=== PATIENT | female | born 1935 | race Caucasian/White ===

== ENCOUNTER → 2016-10-28 | Outpatient (CLI) | payer MEDICARE ==
--- NOTE | 2016-10-28 11:12 | REP ---
MR angiography of the aorta and runoff lower extremity arterial circulation with IV contrast: History: Numbness and swelling bilateral legs. Peripheral vascular disease. MR contrast dose: 35 ml of intravenous ProHance is given. Technique: 3-D MR angiography is acquired in the usual fashion post contrast. Source coronal images are reviewed. Maximal intensity projection images are generated and reviewed rotationally. MR angiographic findings: There is atherosclerotic irregularity of the suprarenal and infrarenal abdominal aorta. No aortic stenosis is seen. The renal arteries are singular and no renal artery stenosis is seen. Superior mesenteric artery and celiac axis are patent. No flow is observed in the inferior mesenteric artery. The common iliac arteries are widely patent bilaterally. Internal iliac arteries are patent on both sides. The external iliac arteries are patent. There is a right distal external iliac artery stenosis of 60%. Common femoral arteries are widely patent bilaterally. Profunda and superficial femoral arteries are widely patent. Popliteal arteries are of good caliber on both sides. There is three-vessel good caliber runoff in both calves with anterior and posterior tibial arteries visualized across the ankles. Impression: 1. Atherosclerotic plaquing of the abdominal aorta. 2. 60% stenosis right external iliac artery. 3. No other arterial stenosis or occlusion seen in the lower extremity runoff circulation. Signed by Catarino Flores MD 10/28/2016 12:25 P
== END ==
LOC: M RAD 08:59
PROVIDERS: ATTEND Family Medicine
DX: I73.9 Peripheral vascular disease, unspecified (principal); M79.89 Other specified soft tissue disorders
CPT/HCPCS: A9576; C8914; C8920

== ENCOUNTER 2016-11-13 10:00 | Emergency (ER) | payer MEDICARE ==
[2016-11-13 11:08] LABS: BASO % 0.7 % (0.0-1.0); EOS # 0.1 K/mm3 (0.0-0.50); EOS % 2.1 % (0.0-3.0); LARGE UNSTAINED CELL # 0.1 K/mm3 (0.0-0.4); LARGE UNSTAINED CELL % 1.7 % (0.0-4.0); LYMPH # 0.6 K/mm3 (1.5-4.5); LYMPH % 15.2 % (24.0-44.0); MEAN CORPUSCULAR HEMOGLOBIN 27.9 pg (27.0-33.0); MEAN CORPUSCULAR HGB CONC 32.2 g/dl (32.0-36.5); MEAN CORPUSCULAR VOLUME 86.8 fl (80.0-96.0); MONO # 0.3 K/mm3 (0.0-0.8); NEUTROPHILS % 73.3 % (36.0-66.0); PLATELET COUNT, AUTOMATED 135 k/mm3 (150-450); RED CELL DISTRIBUTION WIDTH 13.1 % (11.5-14.5); WHITE BLOOD COUNT 4.2 K/mm3 (4.0-10.0)
[2016-11-13 11:23] LABS: ANION GAP 5 MEQ/L (8-16); BLOOD UREA NITROGEN 20 MG/DL (7-18); CALCIUM LEVEL 8.4 MG/DL (8.8-10.2); CARBON DIOXIDE LEVEL 31 MEQ/L (21-32); CHLORIDE LEVEL 110 MEQ/L (98-107); GLOMERULAR FILTRATION RATE > 60.0 (>32); GLUCOSE, FASTING 103 MG/DL (83-110); POTASSIUM SERUM 4.1 MEQ/L (3.5-5.1); SODIUM LEVEL 146 MEQ/L (136-145)
--- NOTE | 2016-11-13 12:24 | ECGEPIP ---
Stationary ECG Study [facility] - ED Test Date: 2016-11-13 Pat Name: DIANE VELASQUEZ Department: Room: - Gender: F Legal Biller: radha : 1935 Requested By: Henry Palomares PA-C Order Number: [id number] Reading MD: Jack Thompson Measurements Intervals [place] Rate: 58 P: 78 NM: 184 QRS: 74 QRSD: 97 T: 51 QT: 427 QTc: 422 Interpretive Statements SINUS BRADYCARDIA POSSIBLE LEFT ATRIAL ENLARGEMENT Electronically Signed On 11-13-2016 12:24:40 EST by Jack Thompson
--- NOTE | 2016-11-13 13:04 | REP ---
Clinical: Headache . Findings: Age-related atrophy and microvascular ischemic changes are appreciated. The ventricles and sulci are symmetric. Mobley-white differentiation is maintained. There is no evidence for acute intracranial hemorrhage, mass/mass effect, pathology or infarction. No extra-axial fluid collection. Calvarium is intact. Paranasal sinuses and mastoid air cells are clear. Impression: Age related atrophy and microvascular ischemic changes. No acute intracranial hemorrhage, infarction, or mass/mass effect. Signed by Homar Milligan MD 11/13/2016 12:55 P
--- NOTE | 2016-11-13 13:12 | REP ---
Clinical: Syncope. Technique: PA and lateral. Comparison: 11/03/2013. Findings: Advanced COPD and chronic interstitial changes are appreciated and stable. Calcified granulomata unchanged. No acute consolidation, effusion, or pneumothorax. Mediastinum and cardiac silhouette normal. Skeletal structures intact. Impression: Chronic COPD and interstitial changes. No acute cardiopulmonary process. Signed by Homar Milligan MD 11/13/2016 01:04 P
--- NOTE | 2016-11-13 14:16 | EDDOCDS ---
Nurse's Notes [facility] Name: Raquel Soria Age: 80 yrs Sex: Female : 1935 Arrival Date: 11/13/2016 Time: 10:00 Bed 8 Private MD: Ambre Davis A Diagnosis: Headache Presentation: 11/13 10:06 Presenting complaint: Patient states: head pressure "for a while off and on" and kc3 unsteadiness x 3 days. Adult Sepsis Screening: The patient does not have new or worsening altered mentation. Patient's respiratory rate is less than 22. Systolic blood pressure is greater than 100. Patient has a qSOFA score of 0- Negative Sepsis Screen. Suicide/Homicide risk assessment- the patient denies having any suicidal and/or homicidal ideations and does not present with any other emotional, behavioral or mental health complaints. Status: Patient is not a service center appraiser or dependent. Transition of care: patient was not received from another setting of care. 10:06 Acuity: AMAN Level 3 kc3 10:06 Method Of Arrival: Walkin/Carried/Asstd kc3 Triage Assessment: 10:11 General: Appears in no apparent distress, comfortable, Behavior is appropriate for age, kc3 cooperative. Pain: Denies pain. Neurological: Level of Consciousness is awake, alert, obeys commands, Reports "head pressure" . Respiratory: Respiratory effort is even, unlabored. Derm: Skin is pink, warm & dry. Historical: - Allergies: no known allergies; - Home Meds: 1. aspirin 325 mg Oral tab 1 tab once daily 2. amlodipine 5 mg Oral tab 1 tab once daily 3. lisinopril 40 mg Oral tab 1 tab once daily 4. atenolol 25 mg Oral tab 1 tab once daily 5. dorzolamide 2 % ophthalmic drop 1 drop 3 times per day - PMHx: Colon cancer; Hypertension; - PSHx: Hysterectomy; Colon re-section; - Social history: Smoking status: Patient states former smoker of tobacco. No barriers to communication noted, The patient speaks fluent Kyrgyz, Speaks appropriately for age. - Family history: Not pertinent. - : The pt / caregiver states he / she is not on anticoagulants. Home medication list is obtained from the patient. - Exposure Risk Screening:: None identified. Screenin:58 Screening information is obtained from the patient. Fall risk: No risks identified. aa3 Assistance ADL's: requires no assistance with activities of daily living. Abuse/DV Screen: The patient / caregiver reports he/she is: not in a situation that causes fear, pain or injury. Nutritional screening: No deficits noted. Advance Directives: Currently, there is no health care proxy. There is no active DNR order. home support is adequate. Assessment: 10:45 General: Appears in no apparent distress, comfortable, Behavior is appropriate for age, aa3 cooperative. Pain: Denies pain. Neurological: Level of Consciousness is awake, alert, Oriented to person, place, time. Respiratory: Airway is patent Respiratory effort is even, unlabored, Respiratory pattern is regular, symmetrical. GI: Abdomen is non- distended. Derm: Skin is intact, is healthy with good turgor, Skin is pink, warm & dry. 11:56 General: Patient resting comfortably on stretcher. No distress noted, no apparent aa3 change in condition. Respirations are even and unlabored, safety precautions in place, will continue to monitor.. 12:44 General: MD speaking with pt at this time. . Neurological: Level of Consciousness is ttb awake, alert. Cardiovascular: Rhythm is sinus rhythm. Respiratory: Airway is patent Respiratory effort is even, unlabored, Respiratory pattern is regular. 14:09 General: Appears in no apparent distress, comfortable, Behavior is appropriate for age, aa3 cooperative. Pain: Denies pain. Neurological: Level of Consciousness is awake, alert, Oriented to person, place, time. Respiratory: Airway is patent Respiratory effort is even, unlabored, Respiratory pattern is regular, symmetrical. Derm: Skin is intact, is healthy with good turgor. Vital Signs: 10:03 BP 148 / 74; Pulse 60; Resp 20; Temp 97.6(O); Pulse Ox 93% ; Weight 44.45 kg; Height 5 cmb ft. 1 in. (154.94 cm); Pain 0/10; 10:41 BP 152 / 72 (auto/); aa3 10:41 Pulse 60 MON; Pulse Ox 94% ; aa3 10:58 BP 152 / 77 LA Supine (auto/reg); Pulse 62; aa3 10:58 BP 161 / 77 LA Sitting (auto/reg); Pulse 63; aa3 10:58 BP 150 / 70 LA Standing (auto/reg); Pulse 62; aa3 11:22 Pulse 60 MON; Pulse Ox 95% ; aa3 11:23 BP 143 / 63 (auto/); aa3 11:52 Pulse 64 MON; Pulse Ox 93% ; aa3 11:53 BP 156 / 90 (auto/); aa3 13:17 Pulse Ox 94% on R/A; aa3 13:22 Pulse 58 MON; Pulse Ox 97% ; aa3 13:22 Temp 96.9(O); Pain 0/10; aa3 13:23 BP 155 / 72 (auto/); aa3 13:52 Pulse 62 MON; Pulse Ox 96% ; aa3 13:53 BP 172 / 78 (auto/); aa3 14:03 Pulse 64 MON; Pulse Ox 95% ; aa3 14:04 BP 164 / 79 (auto/); aa3 10:03 Body Mass Index 18.52 (44.45 kg, 154.94 cm) cmb 13:17 on ambulation aa3 Vitals: 10:03 Log In Time: November 13, 2016 at 10:00. cmb ED Course: 10:02 Patient visited by Linda Mackenzie. cmb 10:02 Patient moved to Waiting cmb 10:03 Amber Davis is Private Physician. cmb 10:05 Patient moved to Pre RCE cmb 10:08 Triage Initiated kc3 10:12 Patient moved to Triage 1 kc3 10:30 ekg monitor on. Pulse ox on. NIBP on. aa3 10:30 Inserted peripheral IV: 20gauge IV in right antecubital area Patient tolerated the aa3 procedure well. Labs drawn. (by ED staff). Sent per order to lab. 10:34 Malka Manrique,RN is Primary Nurse. mlb1 10:34 Patient moved to 8 mlb1 10:46 Patient visited by Lisa Flores,ROSALIE. aa3 10:51 Patient visited by Richi Rudd PCA. jrd 10:51 EKG done. (by ED staff). Reviewed by Presley Dallas MD. jrd 10:58 The patient / caregiver is instructed regarding the plan of care and ED course. aa3 11:00 Patient visited by Lisa Flores RN. aa3 11:26 Hector Khan DO is PHCP. gk1 11:26 Presley Dallas MD is Attending Physician. gk1 11:26 Patient visited by Hector Khan DO. gk1 11:57 Patient visited by Lisa Flores RN. aa3 12:12 Patient visited by Lisa Flores RN. aa3 12:25 EKG-ADULT Returned. EDMS 12:47 Patient visited by Jyotsna Mesa RN. ttb 12:47 Patient visited by Presley Dallas MD. br1 13:07 CT Head Without Contrast Returned. EDMS 13:15 [facility] Payment Agreement was scanned into [employer] and attached to record. mm15 13:17 Patient visited by Lisa Flores RN. aa3 13:22 Discontinued IV intact, bleeding controlled, No redness/swelling at site. No procedures aa3 done that require assistance. 13:41 Patient visited by Hector Khan DO. gk1 13:47 Amber Davis is Referral Physician. gk1 13:47 Chest, 2 View (pa\\E\\lat) Returned. EDMS 13:48 Leonard Estrada MD is Referral Physician. gk1 Order Results: Lab Order: Basic Metabolic Profile; [facility] 11/13/16 10:53 Test: GLUCOSE, FASTING; Value: 103; Range: 83-110; Units: MG/DL; Status: F Test: BLOOD UREA NITROGEN; Value: 20; Range: 7-18; Abnormal: Above high normal; Units: MG/DL; Status: F Test: CREATININE FOR GFR; Value: 0.80; Range: 0.55-1.02; Units: MG/DL; Status: F Test: GLOMERULAR FILTRATION RATE; Value: > 60.0; Range: >32; Status: F Test: SODIUM LEVEL; Value: 146; Range: 136-145; Abnormal: Above high normal; Units: MEQ/L; Status: F Test: POTASSIUM SERUM; Value: 4.1; Range: 3.5-5.1; Units: MEQ/L; Status: F Test: CHLORIDE LEVEL; Value: 110; Range: 98-107; Abnormal: Above high normal; Units: MEQ/L; Status: F Test: CARBON DIOXIDE LEVEL; Value: 31; Range: 21-32; Units: MEQ/L; Status: F Test: ANION GAP; Value: 5; Range: 8-16; Abnormal: Below low normal; Units: MEQ/L; Status: F Test: CALCIUM LEVEL; Value: 8.4; Range: 8.8-10.2; Abnormal: Below low normal; Units: MG/DL; Status: F Test Note: ; Units are mL/min/1.73 m2 Chronic Kidney Disease Staging per NKF: Stage I & II GFR >=60 Normal to Mildly Decreased Stage III GFR 30-59 Moderately Decreased Stage IV GFR 15-29 Severely Decreased Stage V GFR <15 Very Little GFR Left ESRD GFR <15 on DIGITAL MEDIA PRODUCER Lab Order: CBC with Diff; SPEC'M 11/13/16 10:53 Test: WHITE BLOOD COUNT; Value: 4.2; Range: 4.0-10.0; Units: K/mm3; Status: F Test: RED BLOOD COUNT; Value: 4.97; Range: 4.00-5.40; Units: M/mm3; Status: F Test: HEMOGLOBIN; Value: 13.9; Range: 12.0-16.0; Units: g/dl; Status: F Test: HEMATOCRIT; Value: 43.1; Range: 36.0-47.0; Units: %; Status: F Test: MEAN CORPUSCULAR VOLUME; Value: 86.8; Range: 80.0-96.0; Units: fl; Status: F Test: MEAN CORPUSCULAR HEMOGLOBIN; Value: 27.9; Range: 27.0-33.0; Units: pg; Status: F Test: MEAN CORPUSCULAR HGB CONC; Value: 32.2; Range: 32.0-36.5; Units: g/dl; Status: F Test: RED CELL DISTRIBUTION WIDTH; Value: 13.1; Range: 11.5-14.5; Units: %; Status: F Test: PLATELET COUNT, AUTOMATED; Value: 135; Range: 150-450; Abnormal: Below low normal; Units: k/mm3; Status: F Test: NEUTROPHILS %; Value: 73.3; Range: 36.0-66.0; Abnormal: Above high normal; Units: %; Status: F Test: LYMPH %; Value: 15.2; Range: 24.0-44.0; Abnormal: Below low normal; Units: %; Status: F Test: MONO %; Value: 7.0; Range: 0.0-5.0; Abnormal: Above high normal; Units: %; Status: F Test: EOS %; Value: 2.1; Range: 0.0-3.0; Units: %; Status: F Test: BASO %; Value: 0.7; Range: 0.0-1.0; Units: %; Status: F Test: LARGE UNSTAINED CELL %; Value: 1.7; Range: 0.0-4.0; Units: %; Status: F Test: NEUTROPHILS #; Value: 3.0; Range: 1.8-7.7; Units: K/mm3; Status: F Test: LYMPH #; Value: 0.6; Range: 1.5-4.5; Abnormal: Below low normal; Units: K/mm3; Status: F Test: MONO #; Value: 0.3; Range: 0.0-0.8; Units: K/mm3; Status: F Test: EOS #; Value: 0.1; Range: 0.0-0.50; Units: K/mm3; Status: F Test: BASO #; Value: 0.0; Range: 0.0-0.2; Units: K/mm3; Status: F Test: LARGE UNSTAINED CELL #; Value: 0.1; Range: 0.0-0.4; Units: K/mm3; Status: F Lab Order: Cardiac Injury Profile; SPEC' 11/13/16 10:53 Test: CPK CREATINE PHOSPHOKINASE; Value: 43; Range: 26-192; Units: U/L; Status: F Test: CK-MB VALUE MASS; Value: 1.2; Range: 0.0-3.6; Units: NG/ML; Status: F Test: MB/CK RELATIVE INDEX; Value: 2.79; Range: < OR =4; Status: F Test Note: ; DIAGNOSIS CRITERIA MMB ng/ml Relative Index (RI) NON-AMI < or = 5 N/A MOB[place] ZONE > 5 < or = 4 AMI > 5 > 4 Lab Order: Troponin; SPEC'M 11/13/16 10:53 Test: TROPONIN I; Value: < 0.02; Range: < 0.10; Units: NG/ML; Status: F Test Note: ; Troponin I Reference Interval for [employer] [place] LOCI: 99th Percentile= 0.00-0.045 ng/ml Risk Stratification: <= 0.10 ng/ml Decreased Risk for Adverse Clinical Events. 0.10-1.50 ng/ml Increased Risk for Adverse Clinical Events. Evaluation of additional criterion and/or repeat testing in 2-6 hours is suggested to rule out myocardial damage. >= 1.50 ng/ml Indicative of Myocardial Injury. Radiology Order: CT Head Without Contrast Test: CT Head Without Contrast REASON FOR EXAMINATION: head pressure/headache; Clinical: Headache .; ; Findings:; Age-related atrophy and microvascular ischemic changes are appreciated. The; ventricles and sulci are symmetric. Mobley-white differentiation is maintained.; There is no evidence for acute intracranial hemorrhage, mass/mass effect,; pathology or infarction. No extra-axial fluid collection. Calvarium is intact.; Paranasal sinuses and mastoid air cells are clear.; ; Impression:; Age related atrophy and microvascular ischemic changes.; No acute intracranial hemorrhage, infarction, or mass/mass effect.; ; ; Signed by; Homar Milligan MD 11/13/2016 12:55 P; Radiology Order: Chest, 2 View (pa\\E\\lat) Test: Chest, 2 View (pa\\E\\lat) REASON FOR EXAMINATION: near syncope; Clinical: Syncope.; ; Technique: PA and lateral.; ; Comparison: 11/03/2013.; ; Findings:; Advanced COPD and chronic interstitial changes are appreciated and stable.; Calcified granulomata unchanged. No acute consolidation, effusion, or; pneumothorax. Mediastinum and cardiac silhouette normal. Skeletal structures; intact.; ; Impression:; Chronic COPD and interstitial changes. No acute cardiopulmonary process.; ; ; Signed by; Homar Milligan MD 11/13/2016 01:04 P; Outcome: 13:22 Discharge Assessment: Patient awake, alert and oriented x 3. No cognitive and/or aa3 functional deficits noted. Patient verbalized understanding of disposition instructions. patient administered narcotics - no. The following High Risk Discharge criteria are identified: None. Discharged to home ambulatory, with family. Condition: good. Discharge instructions given to patient, Instructed on discharge instructions, follow up and referral plans. medication usage, Demonstrated understanding of instructions, medications, Pt was receptive of discharge instructions/ teaching. Prescriptions given X 1. No special radiology studies were completed. Property :Personal belongings accompany Pt. 13:48 Discharge ordered by Provider. gk1 14:15 Patient left the ED. aa3 Signatures: Dispatcher [employer] EDRao Ibarra RN RN mlb1 Presley Dallas MD MD br1 Linda Mackenzie Teresa, RN RN ttb Nevaeh Saeed mm15 Lisa FloresRN RN aa3 Richi Rudd PCA PCA jrd Crane, Kelsi,ROSALIE RN kc3 Hector Khan, DO gk1 MTDD
--- NOTE | 2016-11-13 14:16 | EDDOCDS ---
Physician Documentation [facility] Name: Raquel Soria Age: 80 yrs Sex: Female : 1935 Arrival Date: 11/13/2016 Time: 10:00 Bed 8 Private MD: Amber Davis A Disposition: 11/13/16 13:48 Discharged to Home/Self Care. Impression: Headache. - Condition is Stable. - Discharge Instructions: General Headache Without Cause, General Headache Without Cause, [id number]. - Prescriptions for nortriptyline 10 mg Oral capsule - take 1 capsule by ORAL route at bedtime; 30 capsule. - Medication Reconciliation, Local Pharmacy Hours form. - Follow up: Amber Davis; When: 4 - 5 days; Reason: Recheck today's complaints, Continuance of care. Follow up: Leonard Estrada MD; When: Call to arrange an appointment; Reason: Recheck today's complaints, Continuance of care, To establish care. - Problem is new. - Symptoms have improved. - Notes: Diagnosis: Headache. Start nortriptylene 10 m capsule by mouthat bedtime daily. Please follow up with your Primary Care Physician Dr. Davis in 4-5 days. Discuss your entire medication list for any renewals or changes to your medications. Please follow up with Neurologist and call Dr. Estrada's office for an appointment for further evaluation of your head complaint. If any worsening signs or symptoms such as confusion, weakness, or unstable balance, please return to the ED for further evaluation. Historical: - Allergies: no known allergies; - Home Meds: 1. aspirin 325 mg Oral tab 1 tab once daily 2. amlodipine 5 mg Oral tab 1 tab once daily 3. lisinopril 40 mg Oral tab 1 tab once daily 4. atenolol 25 mg Oral tab 1 tab once daily 5. dorzolamide 2 % ophthalmic drop 1 drop 3 times per day - PMHx: Colon cancer; Hypertension; - PSHx: Hysterectomy; Colon re-section; - Social history: Smoking status: Patient states former smoker of tobacco. No barriers to communication noted, The patient speaks fluent Irish, Speaks appropriately for age. - Family history: Not pertinent. - : The pt / caregiver states he / she is not on anticoagulants. Home medication list is obtained from the patient. - Exposure Risk Screening:: None identified. Vital Signs: 11/13 10:03 BP 148 / 74; Pulse 60; Resp 20; Temp 97.6(O); Pulse Ox 93% ; Weight 44.45 kg / 98 lbs; cmb Height 5 ft. 1 in. (154.94 cm); Pain 0/10; 10:41 BP 152 / 72 (auto/); aa3 10:41 Pulse 60 MON; Pulse Ox 94% ; aa3 10:58 BP 152 / 77 LA Supine (auto/reg); Pulse 62; aa3 10:58 BP 161 / 77 LA Sitting (auto/reg); Pulse 63; aa3 10:58 BP 150 / 70 LA Standing (auto/reg); Pulse 62; aa3 11:22 Pulse 60 MON; Pulse Ox 95% ; aa3 11:23 BP 143 / 63 (auto/); aa3 11:52 Pulse 64 MON; Pulse Ox 93% ; aa3 11:53 BP 156 / 90 (auto/); aa3 13:17 Pulse Ox 94% on R/A; aa3 13:22 Pulse 58 MON; Pulse Ox 97% ; aa3 13:22 Temp 96.9(O); Pain 0/10; aa3 13:23 BP 155 / 72 (auto/); aa3 13:52 Pulse 62 MON; Pulse Ox 96% ; aa3 13:53 BP 172 / 78 (auto/); aa3 14:03 Pulse 64 MON; Pulse Ox 95% ; aa3 14:04 BP 164 / 79 (auto/); aa3 10:03 Body Mass Index 18.52 (44.45 kg, 154.94 cm) cmb 13:17 on ambulation aa3 MDM: 10:39 Budget Manager/Pulse Ox/q 30 min VS ordered. cc10 10:40 ECG WITH READING ER PHYS+CARDIAG ordered. EDMS 10:41 IV Saline Lock ordered. br1 10:41 Rhythm Strip to chart ordered. br1 10:41 Undress patient appropriately for examination ordered. br1 10:42 Orthostatic VS ordered. br1 10:43 Basic Metabolic Profile Ordered. EDMS 10:43 CBC with Diff Ordered. EDMS 10:43 Cardiac Injury Profile Ordered. EDMS 10:43 Troponin Ordered. EDMS 12:30 CT Head Without Contrast Ordered. EDMS 12:31 Basic Metabolic Profile Reviewed. gk1 12:31 CBC with Diff Reviewed. gk1 12:31 Cardiac Injury Profile Reviewed. gk1 12:31 Troponin Reviewed. gk1 12:48 Ambulate Patient wt Pulse Oximetry ordered. br1 12:50 Chest, 2 View (pa\E\lat) Ordered. EDMS 13:15 [facility] Payment Agreement was scanned into [employer] and attached to record. mm15 13:31 ED course: Seen with resident. Patient complains of several weeks of lightheadedness br1 with bitemporal pressure which she had attributed to her high blood pressure. No chest pain, no shortness of breath. No fever. No neck pain or stiffness, no rash. No trauma. No visual changes. No numbness or weakness. No trouble walking. On exam, lungs, CTA bilaterally. Neurologically intact throughout. Ambulating steadily in ED without ataxia. BP is controlled at 156/90 with no signs or symptoms of end organ damage. Bloodwork along with CT scan of the head as well as chest Xray are unrevealing. No hypoxia with ambulation. Discussed with patient unclear cause of headache. Plan DC home, follow up with her PCP Dr. Davis this week, also provided with Neurology referral to Dr. Estrada for headache. Patient agrees, will call for her appointments.. 13:39 CT Head Without Contrast Reviewed. gk1 13:50 Financial registration complete. lg Signatures: Dispatcher [employer] EDNY Brendan Bingham, Reg Reg lg Presley Dallas MD MD br1 Nevaeh Saeed mm15 Lisa Flores RN RN aa3 Henry Palomares, PA-C PA-C cc10 Taryn Ndiaye RN RN kc3 Hector Khan, DO DO gk1 The chart was reviewed and I authenticate all verbal orders and agree with the evaluation and treatment provided.Attachments: 13:15 [facility] Payment Agreement mm15 [facility]
--- NOTE | 2016-11-15 15:16 | EDDOCDS ---
Physician Documentation [facility] Name: Raquel Soria Age: 80 yrs Sex: Female : 1935 Arrival Date: 11/13/2016 Time: 10:00 Bed 8 Private MD: Amber Davis A Disposition: 11/13/16 13:48 Discharged to Home/Self Care. Impression: Headache. - Condition is Stable. - Discharge Instructions: General Headache Without Cause, General Headache Without Cause, [id number]. - Prescriptions for nortriptyline 10 mg Oral capsule - take 1 capsule by ORAL route at bedtime; 30 capsule. - Medication Reconciliation, Local Pharmacy Hours form. - Follow up: Amber Davis; When: 4 - 5 days; Reason: Recheck today's complaints, Continuance of care. Follow up: Leonard Estrada MD; When: Call to arrange an appointment; Reason: Recheck today's complaints, Continuance of care, To establish care. - Problem is new. - Symptoms have improved. - Notes: Diagnosis: Headache. Start nortriptylene 10 m capsule by mouthat bedtime daily. Please follow up with your Primary Care Physician Dr. Davis in 4-5 days. Discuss your entire medication list for any renewals or changes to your medications. Please follow up with Neurologist and call Dr. Estrada's office for an appointment for further evaluation of your head complaint. If any worsening signs or symptoms such as confusion, weakness, or unstable balance, please return to the ED for further evaluation. Historical: - Allergies: no known allergies; - Home Meds: 1. aspirin 325 mg Oral tab 1 tab once daily 2. amlodipine 5 mg Oral tab 1 tab once daily 3. lisinopril 40 mg Oral tab 1 tab once daily 4. atenolol 25 mg Oral tab 1 tab once daily 5. dorzolamide 2 % ophthalmic drop 1 drop 3 times per day - PMHx: Colon cancer; Hypertension; - PSHx: Hysterectomy; Colon re-section; - Social history: Smoking status: Patient states former smoker of tobacco. No barriers to communication noted, The patient speaks fluent Turkish, Speaks appropriately for age. - Family history: Not pertinent. - : The pt / caregiver states he / she is not on anticoagulants. Home medication list is obtained from the patient. - Exposure Risk Screening:: None identified. Vital Signs: 11/13 10:03 BP 148 / 74; Pulse 60; Resp 20; Temp 97.6(O); Pulse Ox 93% ; Weight 44.45 kg / 98 lbs; cmb Height 5 ft. 1 in. (154.94 cm); Pain 0/10; 10:41 BP 152 / 72 (auto/); aa3 10:41 Pulse 60 MON; Pulse Ox 94% ; aa3 10:58 BP 152 / 77 LA Supine (auto/reg); Pulse 62; aa3 10:58 BP 161 / 77 LA Sitting (auto/reg); Pulse 63; aa3 10:58 BP 150 / 70 LA Standing (auto/reg); Pulse 62; aa3 11:22 Pulse 60 MON; Pulse Ox 95% ; aa3 11:23 BP 143 / 63 (auto/); aa3 11:52 Pulse 64 MON; Pulse Ox 93% ; aa3 11:53 BP 156 / 90 (auto/); aa3 13:17 Pulse Ox 94% on R/A; aa3 13:22 Pulse 58 MON; Pulse Ox 97% ; aa3 13:22 Temp 96.9(O); Pain 0/10; aa3 13:23 BP 155 / 72 (auto/); aa3 13:52 Pulse 62 MON; Pulse Ox 96% ; aa3 13:53 BP 172 / 78 (auto/); aa3 14:03 Pulse 64 MON; Pulse Ox 95% ; aa3 14:04 BP 164 / 79 (auto/); aa3 10:03 Body Mass Index 18.52 (44.45 kg, 154.94 cm) cmb 13:17 on ambulation aa3 MDM: 10:39 [address] Commissioner/Pulse Ox/q 30 min VS ordered. cc10 10:40 ECG WITH READING ER PHYS+CARDIAG ordered. EDMS 10:41 IV Saline Lock ordered. br1 10:41 Rhythm Strip to chart ordered. br1 10:41 Undress patient appropriately for examination ordered. br1 10:42 Orthostatic VS ordered. br1 10:43 Basic Metabolic Profile Ordered. EDMS 10:43 CBC with Diff Ordered. EDMS 10:43 Cardiac Injury Profile Ordered. EDMS 10:43 Troponin Ordered. EDMS 12:30 CT Head Without Contrast Ordered. EDMS 12:31 Basic Metabolic Profile Reviewed. gk1 12:31 CBC with Diff Reviewed. gk1 12:31 Cardiac Injury Profile Reviewed. gk1 12:31 Troponin Reviewed. gk1 12:48 Ambulate Patient wt Pulse Oximetry ordered. br1 12:50 Chest, 2 View (pa\E\lat) Ordered. EDMS 13:15 [facility] Payment Agreement was scanned into [employer] and attached to record. mm15 13:31 ED course: Seen with resident. Patient complains of several weeks of lightheadedness br1 with bitemporal pressure which she had attributed to her high blood pressure. No chest pain, no shortness of breath. No fever. No neck pain or stiffness, no rash. No trauma. No visual changes. No numbness or weakness. No trouble walking. On exam, lungs, CTA bilaterally. Neurologically intact throughout. Ambulating steadily in ED without ataxia. BP is controlled at 156/90 with no signs or symptoms of end organ damage. Bloodwork along with CT scan of the head as well as chest Xray are unrevealing. No hypoxia with ambulation. Discussed with patient unclear cause of headache. Plan DC home, follow up with her PCP Dr. Davis this week, also provided with Neurology referral to Dr. Estrada for headache. Patient agrees, will call for her appointments.. 13:39 CT Head Without Contrast Reviewed. gk1 13:50 Financial registration complete. 15:45 T-Sheet-- Draft Copy was scanned into [employer] and attached to record. klr Signatures: Dispatcher [employer] [facility] Brendan Bingham, Reg Reg Presley Dallas MD MD br1 Nevaeh Saeed mm15 Lisa Flores,RN RN aa3 Henry Palomares, PA-C PA-C cc10 Taryn Ndiaye RN RN kc3 Corinne Rodriguez klr Hector Khan, DO DO gk1 The chart was reviewed and I authenticate all verbal orders and agree with the evaluation and treatment provided.Attachments: 13:15 [facility] Payment Agreement mm15 15:45 T-Sheet-- Draft Copy klr Chart Complete MTDD
--- NOTE | 2016-11-15 15:16 | EDDOCDS ---
Physician Documentation [facility] Name: Raquel Soria Age: 80 yrs Sex: Female : 1935 Arrival Date: 11/13/2016 Time: 10:00 Bed 8 Private MD: Amber Davis A Disposition: 11/13/16 13:48 Discharged to Home/Self Care. Impression: Headache. - Condition is Stable. - Discharge Instructions: General Headache Without Cause, General Headache Without Cause, [id number]. - Prescriptions for nortriptyline 10 mg Oral capsule - take 1 capsule by ORAL route at bedtime; 30 capsule. - Medication Reconciliation, Local Pharmacy Hours form. - Follow up: Amber Davis; When: 4 - 5 days; Reason: Recheck today's complaints, Continuance of care. Follow up: Leonard Estrada MD; When: Call to arrange an appointment; Reason: Recheck today's complaints, Continuance of care, To establish care. - Problem is new. - Symptoms have improved. - Notes: Diagnosis: Headache. Start nortriptylene 10 m capsule by mouthat bedtime daily. Please follow up with your Primary Care Physician Dr. Davis in 4-5 days. Discuss your entire medication list for any renewals or changes to your medications. Please follow up with Neurologist and call Dr. Estrada's office for an appointment for further evaluation of your head complaint. If any worsening signs or symptoms such as confusion, weakness, or unstable balance, please return to the ED for further evaluation. Historical: - Allergies: no known allergies; - Home Meds: 1. aspirin 325 mg Oral tab 1 tab once daily 2. amlodipine 5 mg Oral tab 1 tab once daily 3. lisinopril 40 mg Oral tab 1 tab once daily 4. atenolol 25 mg Oral tab 1 tab once daily 5. dorzolamide 2 % ophthalmic drop 1 drop 3 times per day - PMHx: Colon cancer; Hypertension; - PSHx: Hysterectomy; Colon re-section; - Social history: Smoking status: Patient states former smoker of tobacco. No barriers to communication noted, The patient speaks fluent Nicaraguan, Speaks appropriately for age. - Family history: Not pertinent. - : The pt / caregiver states he / she is not on anticoagulants. Home medication list is obtained from the patient. - Exposure Risk Screening:: None identified. Vital Signs: 11/13 10:03 BP 148 / 74; Pulse 60; Resp 20; Temp 97.6(O); Pulse Ox 93% ; Weight 44.45 kg / 98 lbs; cmb Height 5 ft. 1 in. (154.94 cm); Pain 0/10; 10:41 BP 152 / 72 (auto/); aa3 10:41 Pulse 60 MON; Pulse Ox 94% ; aa3 10:58 BP 152 / 77 LA Supine (auto/reg); Pulse 62; aa3 10:58 BP 161 / 77 LA Sitting (auto/reg); Pulse 63; aa3 10:58 BP 150 / 70 LA Standing (auto/reg); Pulse 62; aa3 11:22 Pulse 60 MON; Pulse Ox 95% ; aa3 11:23 BP 143 / 63 (auto/); aa3 11:52 Pulse 64 MON; Pulse Ox 93% ; aa3 11:53 BP 156 / 90 (auto/); aa3 13:17 Pulse Ox 94% on R/A; aa3 13:22 Pulse 58 MON; Pulse Ox 97% ; aa3 13:22 Temp 96.9(O); Pain 0/10; aa3 13:23 BP 155 / 72 (auto/); aa3 13:52 Pulse 62 MON; Pulse Ox 96% ; aa3 13:53 BP 172 / 78 (auto/); aa3 14:03 Pulse 64 MON; Pulse Ox 95% ; aa3 14:04 BP 164 / 79 (auto/); aa3 10:03 Body Mass Index 18.52 (44.45 kg, 154.94 cm) cmb 13:17 on ambulation aa3 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 cc10 10:40 ECG WITH READING ER PHYS+CARDIAG ordered. EDMS 10:41 IV Saline Lock ordered. br1 10:41 Rhythm Strip to chart ordered. br1 10:41 Undress patient appropriately for examination ordered. br1 10:42 Orthostatic VS ordered. br1 10:43 Basic Metabolic Profile Ordered. EDMS 10:43 CBC with Diff Ordered. EDMS 10:43 Cardiac Injury Profile Ordered. EDMS 10:43 Troponin Ordered. EDMS 12:30 CT Head Without Contrast Ordered. EDMS 12:31 Basic Metabolic Profile Reviewed. gk1 12:31 CBC with Diff Reviewed. gk1 12:31 Cardiac Injury Profile Reviewed. gk1 12:31 Troponin Reviewed. gk1 12:48 Ambulate Patient wt Pulse Oximetry ordered. br1 12:50 Chest, 2 View (pa\E\lat) Ordered. EDMS 13:15 [facility] Payment Agreement was scanned into [employer] and attached to record. mm15 13:31 ED course: Seen with resident. Patient complains of several weeks of lightheadedness br1 with bitemporal pressure which she had attributed to her high blood pressure. No chest pain, no shortness of breath. No fever. No neck pain or stiffness, no rash. No trauma. No visual changes. No numbness or weakness. No trouble walking. On exam, lungs, CTA bilaterally. Neurologically intact throughout. Ambulating steadily in ED without ataxia. BP is controlled at 156/90 with no signs or symptoms of end organ damage. Bloodwork along with CT scan of the head as well as chest Xray are unrevealing. No hypoxia with ambulation. Discussed with patient unclear cause of headache. Plan DC home, follow up with her PCP Dr. Davis this week, also provided with Neurology referral to Dr. Estrada for headache. Patient agrees, will call for her appointments.. 13:39 CT Head Without Contrast Reviewed. gk1 13:50 Financial registration complete. 15:45 T-Sheet-- Draft Copy was scanned into [employer] and attached to record. klr Signatures: Dispatcher [employer] [facility] Brendan Bingham, Reg Reg Presley Dallas MD MD br1 Nevaeh Saeed mm15 Lisa Flores,RN RN aa3 Henry Palomares, PA-C PA-C cc10 Taryn Ndiaye RN RN kc3 Corinne Rodriguez klr Hector Khan, DO DO gk1 The chart was reviewed and I authenticate all verbal orders and agree with the evaluation and treatment provided.Attachments: 13:15 [facility] Payment Agreement mm15 15:45 T-Sheet-- Draft Copy klr Chart Complete MTDD
--- NOTE | 2016-11-15 16:47 | EDDOCDS ---
Physician Documentation [facility] Name: Rqauel Soria Age: 80 yrs Sex: Female : 1935 Arrival Date: 11/13/2016 Time: 10:00 Bed 8 Private MD: Amber Davis A Disposition: 11/13/16 13:48 Discharged to Home/Self Care. Impression: Headache. - Condition is Stable. - Discharge Instructions: General Headache Without Cause, General Headache Without Cause, [id number]. - Prescriptions for nortriptyline 10 mg Oral capsule - take 1 capsule by ORAL route at bedtime; 30 capsule. - Medication Reconciliation, Local Pharmacy Hours form. - Follow up: Amber Davis; When: 4 - 5 days; Reason: Recheck today's complaints, Continuance of care. Follow up: Leonard Estrada MD; When: Call to arrange an appointment; Reason: Recheck today's complaints, Continuance of care, To establish care. - Problem is new. - Symptoms have improved. - Notes: Diagnosis: Headache. Start nortriptylene 10 m capsule by mouthat bedtime daily. Please follow up with your Primary Care Physician Dr. Davis in 4-5 days. Discuss your entire medication list for any renewals or changes to your medications. Please follow up with Neurologist and call Dr. Estrada's office for an appointment for further evaluation of your head complaint. If any worsening signs or symptoms such as confusion, weakness, or unstable balance, please return to the ED for further evaluation. Historical: - Allergies: no known allergies; - Home Meds: 1. aspirin 325 mg Oral tab 1 tab once daily 2. amlodipine 5 mg Oral tab 1 tab once daily 3. lisinopril 40 mg Oral tab 1 tab once daily 4. atenolol 25 mg Oral tab 1 tab once daily 5. dorzolamide 2 % ophthalmic drop 1 drop 3 times per day - PMHx: Colon cancer; Hypertension; - PSHx: Hysterectomy; Colon re-section; - Social history: Smoking status: Patient states former smoker of tobacco. No barriers to communication noted, The patient speaks fluent Ecuadorean, Speaks appropriately for age. - Family history: Not pertinent. - : The pt / caregiver states he / she is not on anticoagulants. Home medication list is obtained from the patient. - Exposure Risk Screening:: None identified. Vital Signs: 11/13 10:03 BP 148 / 74; Pulse 60; Resp 20; Temp 97.6(O); Pulse Ox 93% ; Weight 44.45 kg / 98 lbs; cmb Height 5 ft. 1 in. (154.94 cm); Pain 0/10; 10:41 BP 152 / 72 (auto/); aa3 10:41 Pulse 60 MON; Pulse Ox 94% ; aa3 10:58 BP 152 / 77 LA Supine (auto/reg); Pulse 62; aa3 10:58 BP 161 / 77 LA Sitting (auto/reg); Pulse 63; aa3 10:58 BP 150 / 70 LA Standing (auto/reg); Pulse 62; aa3 11:22 Pulse 60 MON; Pulse Ox 95% ; aa3 11:23 BP 143 / 63 (auto/); aa3 11:52 Pulse 64 MON; Pulse Ox 93% ; aa3 11:53 BP 156 / 90 (auto/); aa3 13:17 Pulse Ox 94% on R/A; aa3 13:22 Pulse 58 MON; Pulse Ox 97% ; aa3 13:22 Temp 96.9(O); Pain 0/10; aa3 13:23 BP 155 / 72 (auto/); aa3 13:52 Pulse 62 MON; Pulse Ox 96% ; aa3 13:53 BP 172 / 78 (auto/); aa3 14:03 Pulse 64 MON; Pulse Ox 95% ; aa3 14:04 BP 164 / 79 (auto/); aa3 10:03 Body Mass Index 18.52 (44.45 kg, 154.94 cm) cmb 13:17 on ambulation aa3 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 cc10 10:40 ECG WITH READING ER PHYS+CARDIAG ordered. EDMS 10:41 IV Saline Lock ordered. br1 10:41 Rhythm Strip to chart ordered. br1 10:41 Undress patient appropriately for examination ordered. br1 10:42 Orthostatic VS ordered. br1 10:43 Basic Metabolic Profile Ordered. EDMS 10:43 CBC with Diff Ordered. EDMS 10:43 Cardiac Injury Profile Ordered. EDMS 10:43 Troponin Ordered. EDMS 12:30 CT Head Without Contrast Ordered. EDMS 12:31 Basic Metabolic Profile Reviewed. gk1 12:31 CBC with Diff Reviewed. gk1 12:31 Cardiac Injury Profile Reviewed. gk1 12:31 Troponin Reviewed. gk1 12:48 Ambulate Patient wt Pulse Oximetry ordered. br1 12:50 Chest, 2 View (pa\E\lat) Ordered. EDMS 13:15 [facility] Payment Agreement was scanned into [employer] and attached to record. mm15 13:31 ED course: Seen with resident. Patient complains of several weeks of lightheadedness br1 with bitemporal pressure which she had attributed to her high blood pressure. No chest pain, no shortness of breath. No fever. No neck pain or stiffness, no rash. No trauma. No visual changes. No numbness or weakness. No trouble walking. On exam, lungs, CTA bilaterally. Neurologically intact throughout. Ambulating steadily in ED without ataxia. BP is controlled at 156/90 with no signs or symptoms of end organ damage. Bloodwork along with CT scan of the head as well as chest Xray are unrevealing. No hypoxia with ambulation. Discussed with patient unclear cause of headache. Plan DC home, follow up with her PCP Dr. Davis this week, also provided with Neurology referral to Dr. Estrada for headache. Patient agrees, will call for her appointments.. 13:39 CT Head Without Contrast Reviewed. gk1 13:50 Financial registration complete. 15:45 T-Sheet-- Draft Copy was scanned into [employer] and attached to record. klr Signatures: Dispatcher [employer] [facility] Brendan Bingham, Reg Reg Presley Dallas MD MD br1 Nevaeh Saeed mm15 Lisa Flores,RN RN aa3 Henry Palomares, PA-C PA-C cc10 Taryn Ndiaye RN RN kc3 Corinne Rodriguez klr Hector Khan, DO DO gk1 The chart was reviewed and I authenticate all verbal orders and agree with the evaluation and treatment provided.Attachments: 13:15 [facility] Payment Agreement mm15 15:45 T-Sheet-- Draft Copy klr Chart Complete MTDD
--- NOTE | 2016-11-15 16:47 | EDDOCDS ---
Physician Documentation [facility] Name: Raquel Soria Age: 80 yrs Sex: Female : 1935 Arrival Date: 11/13/2016 Time: 10:00 Bed 8 Private MD: Amber Davis A Disposition: 11/13/16 13:48 Discharged to Home/Self Care. Impression: Headache. - Condition is Stable. - Discharge Instructions: General Headache Without Cause, General Headache Without Cause, [id number]. - Prescriptions for nortriptyline 10 mg Oral capsule - take 1 capsule by ORAL route at bedtime; 30 capsule. - Medication Reconciliation, Local Pharmacy Hours form. - Follow up: Amber Davis; When: 4 - 5 days; Reason: Recheck today's complaints, Continuance of care. Follow up: Leonard Estrada MD; When: Call to arrange an appointment; Reason: Recheck today's complaints, Continuance of care, To establish care. - Problem is new. - Symptoms have improved. - Notes: Diagnosis: Headache. Start nortriptylene 10 m capsule by mouthat bedtime daily. Please follow up with your Primary Care Physician Dr. Davis in 4-5 days. Discuss your entire medication list for any renewals or changes to your medications. Please follow up with Neurologist and call Dr. Estrada's office for an appointment for further evaluation of your head complaint. If any worsening signs or symptoms such as confusion, weakness, or unstable balance, please return to the ED for further evaluation. Historical: - Allergies: no known allergies; - Home Meds: 1. aspirin 325 mg Oral tab 1 tab once daily 2. amlodipine 5 mg Oral tab 1 tab once daily 3. lisinopril 40 mg Oral tab 1 tab once daily 4. atenolol 25 mg Oral tab 1 tab once daily 5. dorzolamide 2 % ophthalmic drop 1 drop 3 times per day - PMHx: Colon cancer; Hypertension; - PSHx: Hysterectomy; Colon re-section; - Social history: Smoking status: Patient states former smoker of tobacco. No barriers to communication noted, The patient speaks fluent Bahamian, Speaks appropriately for age. - Family history: Not pertinent. - : The pt / caregiver states he / she is not on anticoagulants. Home medication list is obtained from the patient. - Exposure Risk Screening:: None identified. Vital Signs: 11/13 10:03 BP 148 / 74; Pulse 60; Resp 20; Temp 97.6(O); Pulse Ox 93% ; Weight 44.45 kg / 98 lbs; cmb Height 5 ft. 1 in. (154.94 cm); Pain 0/10; 10:41 BP 152 / 72 (auto/); aa3 10:41 Pulse 60 MON; Pulse Ox 94% ; aa3 10:58 BP 152 / 77 LA Supine (auto/reg); Pulse 62; aa3 10:58 BP 161 / 77 LA Sitting (auto/reg); Pulse 63; aa3 10:58 BP 150 / 70 LA Standing (auto/reg); Pulse 62; aa3 11:22 Pulse 60 MON; Pulse Ox 95% ; aa3 11:23 BP 143 / 63 (auto/); aa3 11:52 Pulse 64 MON; Pulse Ox 93% ; aa3 11:53 BP 156 / 90 (auto/); aa3 13:17 Pulse Ox 94% on R/A; aa3 13:22 Pulse 58 MON; Pulse Ox 97% ; aa3 13:22 Temp 96.9(O); Pain 0/10; aa3 13:23 BP 155 / 72 (auto/); aa3 13:52 Pulse 62 MON; Pulse Ox 96% ; aa3 13:53 BP 172 / 78 (auto/); aa3 14:03 Pulse 64 MON; Pulse Ox 95% ; aa3 14:04 BP 164 / 79 (auto/); aa3 10:03 Body Mass Index 18.52 (44.45 kg, 154.94 cm) cmb 13:17 on ambulation aa3 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 cc10 10:40 ECG WITH READING ER PHYS+CARDIAG ordered. EDMS 10:41 IV Saline Lock ordered. br1 10:41 Rhythm Strip to chart ordered. br1 10:41 Undress patient appropriately for examination ordered. br1 10:42 Orthostatic VS ordered. br1 10:43 Basic Metabolic Profile Ordered. EDMS 10:43 CBC with Diff Ordered. EDMS 10:43 Cardiac Injury Profile Ordered. EDMS 10:43 Troponin Ordered. EDMS 12:30 CT Head Without Contrast Ordered. EDMS 12:31 Basic Metabolic Profile Reviewed. gk1 12:31 CBC with Diff Reviewed. gk1 12:31 Cardiac Injury Profile Reviewed. gk1 12:31 Troponin Reviewed. gk1 12:48 Ambulate Patient wt Pulse Oximetry ordered. br1 12:50 Chest, 2 View (pa\E\lat) Ordered. EDMS 13:15 [facility] Payment Agreement was scanned into [employer] and attached to record. mm15 13:31 ED course: Seen with resident. Patient complains of several weeks of lightheadedness br1 with bitemporal pressure which she had attributed to her high blood pressure. No chest pain, no shortness of breath. No fever. No neck pain or stiffness, no rash. No trauma. No visual changes. No numbness or weakness. No trouble walking. On exam, lungs, CTA bilaterally. Neurologically intact throughout. Ambulating steadily in ED without ataxia. BP is controlled at 156/90 with no signs or symptoms of end organ damage. Bloodwork along with CT scan of the head as well as chest Xray are unrevealing. No hypoxia with ambulation. Discussed with patient unclear cause of headache. Plan DC home, follow up with her PCP Dr. Davis this week, also provided with Neurology referral to Dr. Estrada for headache. Patient agrees, will call for her appointments.. 13:39 CT Head Without Contrast Reviewed. gk1 13:50 Financial registration complete. 15:45 T-Sheet-- Draft Copy was scanned into [employer] and attached to record. klr Signatures: Dispatcher [employer] [facility] Brendan Bingham, Reg Reg Presley Dallas MD MD br1 Nevaeh Saeed mm15 Lisa Flores,RN RN aa3 Henry Palomares, PA-C PA-C cc10 Taryn Ndiaye RN RN kc3 Corinne Rodriguez klr Hector Khan, DO DO gk1 The chart was reviewed and I authenticate all verbal orders and agree with the evaluation and treatment provided.Attachments: 13:15 [facility] Payment Agreement mm15 15:45 T-Sheet-- Draft Copy klr Chart Complete MTDD
--- NOTE | 2016-11-15 16:47 | EDDOCDS ---
Nurse's Notes [facility] Name: Raquel Soria Age: 80 yrs Sex: Female : 1935 Arrival Date: 11/13/2016 Time: 10:00 Bed 8 Private MD: Amber Davis A Diagnosis: Headache Presentation: 11/13 10:06 Presenting complaint: Patient states: head pressure "for a while off and on" and kc3 unsteadiness x 3 days. Adult Sepsis Screening: The patient does not have new or worsening altered mentation. Patient's respiratory rate is less than 22. Systolic blood pressure is greater than 100. Patient has a qSOFA score of 0- Negative Sepsis Screen. Suicide/Homicide risk assessment- the patient denies having any suicidal and/or homicidal ideations and does not present with any other emotional, behavioral or mental health complaints. Status: Patient is not a healthcare advisory services manager or dependent. Transition of care: patient was not received from another setting of care. 10:06 Acuity: AMAN Level 3 kc3 10:06 Method Of Arrival: Walkin/Carried/Asstd kc3 Triage Assessment: 10:11 General: Appears in no apparent distress, comfortable, Behavior is appropriate for age, kc3 cooperative. Pain: Denies pain. Neurological: Level of Consciousness is awake, alert, obeys commands, Reports "head pressure" . Respiratory: Respiratory effort is even, unlabored. Derm: Skin is pink, warm & dry. Historical: - Allergies: no known allergies; - Home Meds: 1. aspirin 325 mg Oral tab 1 tab once daily 2. amlodipine 5 mg Oral tab 1 tab once daily 3. lisinopril 40 mg Oral tab 1 tab once daily 4. atenolol 25 mg Oral tab 1 tab once daily 5. dorzolamide 2 % ophthalmic drop 1 drop 3 times per day - PMHx: Colon cancer; Hypertension; - PSHx: Hysterectomy; Colon re-section; - Social history: Smoking status: Patient states former smoker of tobacco. No barriers to communication noted, The patient speaks fluent Yakut, Speaks appropriately for age. - Family history: Not pertinent. - : The pt / caregiver states he / she is not on anticoagulants. Home medication list is obtained from the patient. - Exposure Risk Screening:: None identified. Screenin:58 Screening information is obtained from the patient. Fall risk: No risks identified. aa3 Assistance ADL's: requires no assistance with activities of daily living. Abuse/DV Screen: The patient / caregiver reports he/she is: not in a situation that causes fear, pain or injury. Nutritional screening: No deficits noted. Advance Directives: Currently, there is no health care proxy. There is no active DNR order. home support is adequate. Assessment: 10:45 General: Appears in no apparent distress, comfortable, Behavior is appropriate for age, aa3 cooperative. Pain: Denies pain. Neurological: Level of Consciousness is awake, alert, Oriented to person, place, time. Respiratory: Airway is patent Respiratory effort is even, unlabored, Respiratory pattern is regular, symmetrical. GI: Abdomen is non- distended. Derm: Skin is intact, is healthy with good turgor, Skin is pink, warm & dry. 11:56 General: Patient resting comfortably on stretcher. No distress noted, no apparent aa3 change in condition. Respirations are even and unlabored, safety precautions in place, will continue to monitor.. 12:44 General: MD speaking with pt at this time. . Neurological: Level of Consciousness is ttb awake, alert. Cardiovascular: Rhythm is sinus rhythm. Respiratory: Airway is patent Respiratory effort is even, unlabored, Respiratory pattern is regular. 14:09 General: Appears in no apparent distress, comfortable, Behavior is appropriate for age, aa3 cooperative. Pain: Denies pain. Neurological: Level of Consciousness is awake, alert, Oriented to person, place, time. Respiratory: Airway is patent Respiratory effort is even, unlabored, Respiratory pattern is regular, symmetrical. Derm: Skin is intact, is healthy with good turgor. Vital Signs: 10:03 BP 148 / 74; Pulse 60; Resp 20; Temp 97.6(O); Pulse Ox 93% ; Weight 44.45 kg; Height 5 cmb ft. 1 in. (154.94 cm); Pain 0/10; 10:41 BP 152 / 72 (auto/); aa3 10:41 Pulse 60 MON; Pulse Ox 94% ; aa3 10:58 BP 152 / 77 LA Supine (auto/reg); Pulse 62; aa3 10:58 BP 161 / 77 LA Sitting (auto/reg); Pulse 63; aa3 10:58 BP 150 / 70 LA Standing (auto/reg); Pulse 62; aa3 11:22 Pulse 60 MON; Pulse Ox 95% ; aa3 11:23 BP 143 / 63 (auto/); aa3 11:52 Pulse 64 MON; Pulse Ox 93% ; aa3 11:53 BP 156 / 90 (auto/); aa3 13:17 Pulse Ox 94% on R/A; aa3 13:22 Pulse 58 MON; Pulse Ox 97% ; aa3 13:22 Temp 96.9(O); Pain 0/10; aa3 13:23 BP 155 / 72 (auto/); aa3 13:52 Pulse 62 MON; Pulse Ox 96% ; aa3 13:53 BP 172 / 78 (auto/); aa3 14:03 Pulse 64 MON; Pulse Ox 95% ; aa3 14:04 BP 164 / 79 (auto/); aa3 10:03 Body Mass Index 18.52 (44.45 kg, 154.94 cm) cmb 13:17 on ambulation aa3 Vitals: 10:03 Log In Time: November 13, 2016 at 10:00. cmb ED Course: 10:02 Patient visited by Linda Mackenzie. cmb 10:02 Patient moved to Waiting cmb 10:03 Amber Davis is Private Physician. cmb 10:05 Patient moved to Pre RCE cmb 10:08 Triage Initiated kc3 10:12 Patient moved to Triage 1 kc3 10:30 line haul driver on. Pulse ox on. NIBP on. aa3 10:30 Inserted peripheral IV: 20gauge IV in right antecubital area Patient tolerated the aa3 procedure well. Labs drawn. (by ED staff). Sent per order to lab. 10:34 Malka Manrique,RN is Primary Nurse. mlb1 10:34 Patient moved to 8 mlb1 10:46 Patient visited by Lisa Flores,ROSALIE. aa3 10:51 Patient visited by Richi Rudd PCA. jrd 10:51 EKG done. (by ED staff). Reviewed by Presley Dallas MD. jrd 10:58 The patient / caregiver is instructed regarding the plan of care and ED course. aa3 11:00 Patient visited by Lisa Flores RN. aa3 11:26 Hector Khan DO is PHCP. gk1 11:26 Presley Dallas MD is Attending Physician. gk1 11:26 Patient visited by Hector Khan DO. gk1 11:57 Patient visited by Lisa Flores RN. aa3 12:12 Patient visited by Lisa Flores RN. aa3 12:25 EKG-ADULT Returned. EDMS 12:47 Patient visited by Jyotsna Mesa RN. ttb 12:47 Patient visited by Presley Dallas MD. br1 13:07 CT Head Without Contrast Returned. EDMS 13:15 [facility] Payment Agreement was scanned into [employer] and attached to record. mm15 13:17 Patient visited by Lisa Flores RN. aa3 13:22 Discontinued IV intact, bleeding controlled, No redness/swelling at site. No procedures aa3 done that require assistance. 13:41 Patient visited by Hector Khan DO. gk1 13:47 Amber Davis is Referral Physician. gk1 13:47 Chest, 2 View (pa\\E\\lat) Returned. EDMS 13:48 Leonard Estrada MD is Referral Physician. gk1 15:45 T-Sheet-- Draft Copy was scanned into [employer] and attached to record. klr Order Results: Lab Order: Basic Metabolic Profile; SPEC'M 11/13/16 10:53 Test: GLUCOSE, FASTING; Value: 103; Range: 83-110; Units: MG/DL; Status: F Test: BLOOD UREA NITROGEN; Value: 20; Range: 7-18; Abnormal: Above high normal; Units: MG/DL; Status: F Test: CREATININE FOR GFR; Value: 0.80; Range: 0.55-1.02; Units: MG/DL; Status: F Test: GLOMERULAR FILTRATION RATE; Value: > 60.0; Range: >32; Status: F Test: SODIUM LEVEL; Value: 146; Range: 136-145; Abnormal: Above high normal; Units: MEQ/L; Status: F Test: POTASSIUM SERUM; Value: 4.1; Range: 3.5-5.1; Units: MEQ/L; Status: F Test: CHLORIDE LEVEL; Value: 110; Range: 98-107; Abnormal: Above high normal; Units: MEQ/L; Status: F Test: CARBON DIOXIDE LEVEL; Value: 31; Range: 21-32; Units: MEQ/L; Status: F Test: ANION GAP; Value: 5; Range: 8-16; Abnormal: Below low normal; Units: MEQ/L; Status: F Test: CALCIUM LEVEL; Value: 8.4; Range: 8.8-10.2; Abnormal: Below low normal; Units: MG/DL; Status: F Test Note: ; Units are mL/min/1.73 m2 Chronic Kidney Disease Staging per NKF: Stage I & II GFR >=60 Normal to Mildly Decreased Stage III GFR 30-59 Moderately Decreased Stage IV GFR 15-29 Severely Decreased Stage V GFR <15 Very Little GFR Left ESRD GFR <15 on PERSONAL COMPUTER NETWORK ENGINEER Lab Order: CBC with Diff; SPEC'M 11/13/16 10:53 Test: WHITE BLOOD COUNT; Value: 4.2; Range: 4.0-10.0; Units: K/mm3; Status: F Test: RED BLOOD COUNT; Value: 4.97; Range: 4.00-5.40; Units: M/mm3; Status: F Test: HEMOGLOBIN; Value: 13.9; Range: 12.0-16.0; Units: g/dl; Status: F Test: HEMATOCRIT; Value: 43.1; Range: 36.0-47.0; Units: %; Status: F Test: MEAN CORPUSCULAR VOLUME; Value: 86.8; Range: 80.0-96.0; Units: fl; Status: F Test: MEAN CORPUSCULAR HEMOGLOBIN; Value: 27.9; Range: 27.0-33.0; Units: pg; Status: F Test: MEAN CORPUSCULAR HGB CONC; Value: 32.2; Range: 32.0-36.5; Units: g/dl; Status: F Test: RED CELL DISTRIBUTION WIDTH; Value: 13.1; Range: 11.5-14.5; Units: %; Status: F Test: PLATELET COUNT, AUTOMATED; Value: 135; Range: 150-450; Abnormal: Below low normal; Units: k/mm3; Status: F Test: NEUTROPHILS %; Value: 73.3; Range: 36.0-66.0; Abnormal: Above high normal; Units: %; Status: F Test: LYMPH %; Value: 15.2; Range: 24.0-44.0; Abnormal: Below low normal; Units: %; Status: F Test: MONO %; Value: 7.0; Range: 0.0-5.0; Abnormal: Above high normal; Units: %; Status: F Test: EOS %; Value: 2.1; Range: 0.0-3.0; Units: %; Status: F Test: BASO %; Value: 0.7; Range: 0.0-1.0; Units: %; Status: F Test: LARGE UNSTAINED CELL %; Value: 1.7; Range: 0.0-4.0; Units: %; Status: F Test: NEUTROPHILS #; Value: 3.0; Range: 1.8-7.7; Units: K/mm3; Status: F Test: LYMPH #; Value: 0.6; Range: 1.5-4.5; Abnormal: Below low normal; Units: K/mm3; Status: F Test: MONO #; Value: 0.3; Range: 0.0-0.8; Units: K/mm3; Status: F Test: EOS #; Value: 0.1; Range: 0.0-0.50; Units: K/mm3; Status: F Test: BASO #; Value: 0.0; Range: 0.0-0.2; Units: K/mm3; Status: F Test: LARGE UNSTAINED CELL #; Value: 0.1; Range: 0.0-0.4; Units: K/mm3; Status: F Lab Order: Cardiac Injury Profile; SPEC'M 11/13/16 10:53 Test: CPK CREATINE PHOSPHOKINASE; Value: 43; Range: 26-192; Units: U/L; Status: F Test: CK-MB VALUE MASS; Value: 1.2; Range: 0.0-3.6; Units: NG/ML; Status: F Test: MB/CK RELATIVE INDEX; Value: 2.79; Range: < OR =4; Status: F Test Note: ; DIAGNOSIS CRITERIA MMB ng/ml Relative Index (RI) NON-AMI < or = 5 N/A [place]ONE > 5 < or = 4 AMI > 5 > 4 Lab Order: Troponin; SPEC'M 11/13/16 10:53 Test: TROPONIN I; Value: < 0.02; Range: < 0.10; Units: NG/ML; Status: F Test Note: ; Troponin I Reference Interval for Siemens [place] LOCI: 99th Percentile= 0.00-0.045 ng/ml Risk Stratification: <= 0.10 ng/ml Decreased Risk for Adverse Clinical Events. 0.10-1.50 ng/ml Increased Risk for Adverse Clinical Events. Evaluation of additional criterion and/or repeat testing in 2-6 hours is suggested to rule out myocardial damage. >= 1.50 ng/ml Indicative of Myocardial Injury. Radiology Order: CT Head Without Contrast Test: CT Head Without Contrast REASON FOR EXAMINATION: head pressure/headache; Clinical: Headache .; ; Findings:; Age-related atrophy and microvascular ischemic changes are appreciated. The; ventricles and sulci are symmetric. Mobley-white differentiation is maintained.; There is no evidence for acute intracranial hemorrhage, mass/mass effect,; pathology or infarction. No extra-axial fluid collection. Calvarium is intact.; Paranasal sinuses and mastoid air cells are clear.; ; Impression:; Age related atrophy and microvascular ischemic changes.; No acute intracranial hemorrhage, infarction, or mass/mass effect.; ; ; Signed by; Homar Milligan MD 11/13/2016 12:55 P; Radiology Order: Chest, 2 View (pa\\E\\lat) Test: Chest, 2 View (pa\\E\\lat) REASON FOR EXAMINATION: near syncope; Clinical: Syncope.; ; Technique: PA and lateral.; ; Comparison: 11/03/2013.; ; Findings:; Advanced COPD and chronic interstitial changes are appreciated and stable.; Calcified granulomata unchanged. No acute consolidation, effusion, or; pneumothorax. Mediastinum and cardiac silhouette normal. Skeletal structures; intact.; ; Impression:; Chronic COPD and interstitial changes. No acute cardiopulmonary process.; ; ; Signed by; Homar Milligan MD 11/13/2016 01:04 P; Outcome: 13:22 Discharge Assessment: Patient awake, alert and oriented x 3. No cognitive and/or aa3 functional deficits noted. Patient verbalized understanding of disposition instructions. patient administered narcotics - no. The following High Risk Discharge criteria are identified: None. Discharged to home ambulatory, with family. Condition: good. Discharge instructions given to patient, Instructed on discharge instructions, follow up and referral plans. medication usage, Demonstrated understanding of instructions, medications, Pt was receptive of discharge instructions/ teaching. Prescriptions given X 1. No special radiology studies were completed. Property :Personal belongings accompany Pt. 13:48 Discharge ordered by Provider. gk1 14:15 Patient left the ED. aa3 Signatures: Dispatcher [employer] EDVA Rao Vila RN RN mlb1 Presley Dallas MD MD br1 Linda Mackenzie Teresa RN RN ttb Nevaeh Saeed mm15 Lisa Flores RN RN aa3 Richi Rudd, JAMIE BOAT GARNISHER Taryn ReddRN RN kc3 Corinne Rodriguez Gurpreet, DO gk1 Chart Complete MILDRED
== END 2016-11-13 14:15 | disposition home or self-care (01) ==
LOC: M ED 10:00
DX: R51 Headache (principal); Z85.038 Personal history of other malignant neoplasm of large intestine; I10 Essential (primary) hypertension; Z90.49 Acquired absence of other specified parts of digestive tract; Z87.891 Personal history of nicotine dependence; Z79.82 Long term (current) use of aspirin; Z79.899 Other long term (current) drug therapy

== ENCOUNTER 2020-02-04 19:59 | Emergency (ER) | payer MEDICARE ==
[~2020-02-04] VITALS: Ht 152.4 cm; Wt 33.9 kg
[~2020-02-04 19:59] MED LIST: LISI-538
[2020-02-04] MEDS ORDERED: ARIC1TAB PO (20:11)
[2020-02-04] MEDS ORDERED: LISI40TA PO (20:14)
[2020-02-04] MEDS ORDERED: VITA200048 PO (20:14)
[2020-02-04] MEDS ORDERED: TOPR100T PO (20:14)
[2020-02-04] MEDS ORDERED: KLOR20TA42 PO (20:14)
[2020-02-04] MEDS ORDERED: FURO40TA2 PO (20:14)
[2020-02-04 21:51] LABS: ALBUMIN 3.5 GM/DL (3.2-5.2); ALT/SGPT 25 U/L (12-78); BILIRUBIN,DIRECT 0.2 MG/DL (0.0-0.2); BILIRUBIN,TOTAL 0.5 MG/DL (0.2-1.0); BLOOD UREA NITROGEN 32 MG/DL (7-18); CALCIUM LEVEL 8.6 MG/DL (8.8-10.2); CARBON DIOXIDE LEVEL 33 MEQ/L (21-32); CHLORIDE LEVEL 107 MEQ/L (98-107); CREATININE FOR GFR 0.78 MG/DL (0.55-1.30); GLOMERULAR FILTRATION RATE > 60.0 (>32); GLUCOSE, FASTING 85 MG/DL (70-100); POTASSIUM SERUM 4.1 MEQ/L (3.5-5.1); SODIUM LEVEL 144 MEQ/L (136-145); TOTAL PROTEIN 6.4 GM/DL (6.4-8.2)
[2020-02-04 21:58] LABS: HEMATOCRIT 47.5 % (36.0-47.0); HEMOGLOBIN 15.1 g/dl (12.0-15.5); MEAN CORPUSCULAR HEMOGLOBIN 28.4 pg (27.0-33.0); MEAN CORPUSCULAR HGB CONC 31.8 g/dl (32.0-36.5); MEAN CORPUSCULAR VOLUME 89.3 fl (80.0-96.0); PLATELET COUNT, AUTOMATED 144 10^3/uL (150-450); RED BLOOD COUNT 5.32 10^6/uL (4.00-5.40); WHITE BLOOD COUNT 8.1 10^3/uL (4.0-10.0)
--- NOTE | 2020-02-04 22:01 | REPVR ---
PROCEDURE INFORMATION: Exam: US Duplex Right Lower Extremity Veins, Limited Exam date and time: 02/04/2020 9:58 PM Age: 84 years old Clinical indication: Dependent ecchymosis TECHNIQUE: Imaging protocol: Real-time Duplex ultrasound of the Right Lower Extremity with 2-D yanez scale, color Doppler flow and spectral waveform analysis with image documentation. Limited exam was focused on the right lower extremity veins. COMPARISON: No relevant prior studies available. FINDINGS: Right deep veins: Unremarkable. The common femoral, femoral, and popliteal veins are patent without thrombus. Normal compressibility, augmentation response and Doppler waveforms. Right superficial veins: Unremarkable. Saphenofemoral junction is patent without thrombus. Soft tissues: Unremarkable. IMPRESSION: No deep vein thrombosis in the veins imaged in the right lower extremity. Electronically signed by: Tc Guerra On 02/04/2020 22:01:00 PM
[2020-02-04 22:16] LABS: INR 1.02; PROTHROMBIN TIME 13.1 SECONDS (11.8-14.0)
[2020-02-04 22:17] LABS: PARTIAL THROMBOPLASTIN TIME 26.5 SECONDS (25.0-38.4)
[2020-02-04 22:52] VITALS: BP 153/71
== END 2020-02-04 22:53 | disposition home or self-care (01) ==
LOC: M ED 19:59
DX: R60.9 Edema, unspecified (principal); F03.90 Unspecified dementia, unspecified severity, without behavioral disturbance, psychotic disturbance, mood disturbance, and anxiety; I11.9 Hypertensive heart disease without heart failure; J44.9 Chronic obstructive pulmonary disease, unspecified; Z87.891 Personal history of nicotine dependence; Z90.710 Acquired absence of both cervix and uterus; Z79.899 Other long term (current) drug therapy